=== PATIENT | male | born 1965 | race Caucasian/White ===

== ENCOUNTER 2020-08-17 13:56 | Outpatient (CLI) | payer OTHER | END 2020-08-17 13:57 | disposition home or self-care (01) | LOC: RAD-FRANK 13:56 | PROVIDERS: ATTEND Nurse Practitioner Family | DX: M54.5 Low back pain (principal); M47.816 Spondylosis without myelopathy or radiculopathy, lumbar region | CPT/HCPCS: 72100 ==

== ENCOUNTER 2022-08-20 11:52 | Outpatient (CLI) | payer OTHER | END 2022-08-20 11:53 | disposition home or self-care (01) | LOC: RAD-FRANK 11:52 | PROVIDERS: ATTEND Nurse Practitioner Family | DX: M25.551 Pain in right hip (principal) ==